=== PATIENT | male | born 1930 | race Caucasian/White ===

== ENCOUNTER 2017-01-05 13:35 | Emergency (ER) | payer MEDICARE, BC ==
[2017-01-05] MEDS ORDERED: IOPAMIDOL 370 (76%) IV.SOLN 150 ML IV ONE (13:36)
[2017-01-05 14:00] LABS: BASO % 0.4 % (0.2-1.0); EOS % 0.2 % (0.9-2.9); HEMATOCRIT 39.1 % (32.0-52.0); HEMOGLOBIN 12.7 gm/l (14.0-18.0); IMM NEUT # 0.1 K/mm3 (0-0.2); IMM NEUT% 0.6 % (0-1); LYMPH # 1.3 (1.0-4.8); LYMPH % 11.3 % (15-45); MEAN CELL VOLUME 96.5 fl (80.0-94.0); MEAN CORPUSCULAR HEMOGLOBIN 31.4 pg (27.0-31.0); MEAN CORPUSCULAR HGB CONC 32.5 g/dl (33.0-37.0); MEAN PLATELET VOLUME 9.2 fl (7.4-10.4); MONO # 0.8 (0.0-0.8); MONO % 7.4 % (4-12); NEUT % 80.1 % (43-75); PLATELET COUNT 223 K/mm3 (130-400); RED CELL DISTRIBUTION WIDTH 12.9 % (11.5-14.5)
[2017-01-05 14:05] LABS: INR 0.9; PROTHROMBIN TIME 9.3 SECONDS (9.3-11.4)
[2017-01-05 14:08] LABS: ALB/GLOB RATIO 1.7 (>1.0); ALBUMIN 4.2 gm/dL (3.5-5.7); CALCIUM 10.7 mg/dL (8.6-10.3)
--- NOTE | 2017-01-05 14:10 | CT ---
HEAD W/O CON History: Left-sided facial droop with weakness. Comparison: None. Procedure: 1 mm axial images were obtained through the head from the vertex to the base of the skull without intravenous contrast. Stacked reconstructed 5 mm images were then obtained in the axial, coronal and sagittal planes. Findings: The lateral ventricles, cerebral sulci and sylvian fissures are mildly prominent. No evidence of midline shift is seen. No mass or mass effect is identified. No evidence of intra or extra-axial fluid collections or hemorrhage is visualized. There are mild periventricular deep white matter low-attenuation changes observed. The basilar cisterns are uneffaced. The posterior fossa structures are unremarkable. Bone windows demonstrate no acute osseous abnormalities. Impression: 1. No findings of acute intracranial hemorrhage. 2. Cerebral atrophy. 3. Mild periventricular deep white matter low-attenuation changes most consistent with small vessel ischemia considering patient age.
--- NOTE | 2017-01-05 14:17 | CT ---
CTA HEAD W/ POST PROCESS History: Left-sided facial droop with weakness. Comparison: None. Procedure: 1 mm axial images were obtained through the head following the administration of 80cc's of Isovue-370 intravenous contrast. Stacked reconstructed 3 mm images were then photographed in the axial, coronal and sagittal planes. 3-D reconstructed MIP images were also performed on the scanner workstation. Findings: Images demonstrate evidence of mucous retention cysts or polyps within both maxillary sinuses. The orbits appear to be appropriate. No enlarged cervical chain adenopathy is seen. The posterior pharyngeal soft tissues are appropriate. Evaluation of the vascular structures demonstrates prominent tortuosity of the spur portion of the left internal carotid artery. The internal carotid vessels demonstrate a relatively normal caliber with no focal stenosis or discrete aneurysm visualized. The middle and anterior cerebral branches appear to be appropriate. No pruning of the distal middle cerebral artery branches is observed. The vertebral arteries appear to be codominant. The basilar artery is of normal caliber. There is no basilar tip aneurysm visualized. The posterior cerebral vessels appear to be patent. Mild atherosclerotic calcification of the intracranial carotid arteries is noted. Impression: 1. No discrete stenosis or focal aneurysm visualized. 2. Codominant vertebral arteries. 3. Bilateral maxillary sinus mucous retention cysts or polyps.
--- NOTE | 2017-01-05 14:25 | CT ---
CTA CAROTID W/ POST PROCESS History: Left-sided facial droop and weakness. Comparison: None. Procedure: 1 mm axial images were obtained through the neck following the administration of 80cc's of Isovue-370 intravenous contrast. Stacked reconstructed 3 mm images were then photographed in the axial, coronal and sagittal planes. 3-D reconstructed MIP images were also performed on the scanner workstation. Findings: There is a normal appearance of the thyroid gland. A small amount of atherosclerotic disease is evident involving the aorta and great vessel branches. No significant cervical chain adenopathy is visualized. No enlarged adenopathy is seen within the visualized mediastinum. The visualized lung parenchyma is appropriate. The visualized trachea is unremarkable. There is a small amount of atherosclerotic calcific plaque seen at the origin of the left subclavian artery. No stenosis is visualized however. The left common carotid artery demonstrates a mildly tortuous course. There is a small amount of calcific plaque seen at the carotid bifurcation extending into the internal carotid artery producing approximate 25% diameter stenosis. The distal left internal carotid artery demonstrates a somewhat tortuous course though no additional stenosis is visualized. The innominate artery and the right subclavian artery appear to be widely patent. The right common carotid artery demonstrates a normal course and caliber. There is a focus of soft plaque seen at the right carotid bifurcation extending into the proximal right internal carotid artery. This appears to narrow the lumen of the proximal right internal carotid artery by 40% original diameter. The distal portions of the right internal carotid artery appear to be otherwise appropriate. The vertebral arteries are codominant. A small focus of calcific plaque seen at the origin of the right vertebral artery. No focal stenosis or evidence to suggest a dissection is observed. Impression: 1. A small amount of atherosclerotic plaque involving the aorta and great vessel branches. 2. 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 3. An approximate 25% diameter narrowing of the proximal left internal carotid artery. 4. A tortuous course of the distal left internal carotid artery at its cervical portion. 5. Codominant vertebral arteries. The findings were discussed with Dr. Champion at 1420 hours.
--- NOTE | 2017-01-05 15:05 | RAD ---
CHEST - 1 VIEW HISTORY: Stroke. COMPARISONS: None. FINDINGS: An AP upright view of the chest was performed demonstrating normal-appearing soft tissue and bony structures. The heart size is normal for technique. No infiltrate, effusion or pneumothorax is visualized. The hilar and mediastinal structures are intact. IMPRESSION: 1. A negative portable chest.
[2017-01-05] MEDS ORDERED: WATER FOR INJECTION STERILE IV ONE (15:48)
[2017-01-05] MEDS ORDERED: ALTEPLASE IV ONE (15:48)
== END 2017-01-05 17:31 | disposition short-term general hospital (02) ==
LOC: ED 13:35
DX: I63.9 Cerebral infarction, unspecified (principal); R53.1 Weakness; I10 Essential (primary) hypertension
CPT/HCPCS: 85025; 80053; 85610; 71010; 70450; 70496; 70498; 99285; 96365; 82962; 99291; J2997; Q9967